=== PATIENT | male | born 1960 | race Caucasian/White ===

== ENCOUNTER → 2023-11-03 | Outpatient (CLI) | payer BC ==
--- NOTE | 2023-11-03 10:15 | US ---
EXAMINATION TYPE: US scrotum with doppler. Grayscale and color Doppler Duplex imaging performed of t rosamaria scrotum. DATE OF EXAM: 11/03/2023 COMPARISON: NONE CLINICAL INDICATION: Male, 63 years old with history of N50.812 TESTICULAR PAIN; Right testicular pa in x 3 weeks. EXAM MEASUREMENTS: TESTICLES: Right Testicle: 5.0 x 3.6 x 2.4 cm Left Testicle: 4.7 x 3.1 x 2.4 cm EPIDIDYMIS HEAD: Right Epididymis: 0.9 x 0.9 x 1.3 cm Left Epididymis: 0.9 x 1.0 x 1.1 cm Doppler performed to assess for testicular vascularity; bilateral color flow and waveforms are seen. Presence of hydroceles: Yes, right= 3.8 x 3.4 x 1.7 cm. Left= 3.2 x 0.8 x 0.9 cm. Presence of varicoceles: No IMPRESSION: 1. Moderate right hydrocele.
[2023-11-03 15:39] LABS: ALT 41 U/L (10-49); AST 24 U/L (14-35); Albumin 4.2 g/dL (3.8-4.9); Albumin/Globulin Ratio 1.83 Ratio (1.60-3.17); Alkaline Phosphatase 112 U/L (41-126); BUN/Creat Ratio 12.73 Ratio (12.00-20.00); Basophils # (A) 0.04 X 10*3/uL (0.00-0.10); Calcium 9.8 mg/dL (8.7-10.3); Carbon Dioxide 24.1 mmol/L (21.6-31.8); Chloride 104 mmol/L (96-109); Chol/HDL Ratio 5.05 Ratio; Eosinophils # (A) 0.12 X 10*3/uL (0.04-0.35); Eosinophils % (A) 2.9 %; Globulin 2.3 g/dL (1.6-3.3); Glucose 106 mg/dL (70-110); HCT 49.1 % (39.6-50.0); HGB 15.8 g/dL (13.0-17.0); LDL Cholesterol,Calculated 161.5 mg/dL (0.0-131.0); Lymphocytes # (A) 1.82 X 10*3/uL (0.90-5.00); Lymphocytes % (A) 44.5 %; MCH 29.5 pg (27.0-32.0); MCHC 32.2 g/dL (32.0-37.0); MCV 91.6 FL (80.0-97.0); Mean Platelet Volume 10.3 FL (9.5-12.2); Monocytes # (A) 0.41 X 10*3/uL (0.20-1.00); NRBC Per 100 WBC 0.02 X 10*3/uL (0.00-0.01); Neutrophils # (A) 1.69 X 10*3/uL (1.80-7.70); Neutrophils % (A) 41.4 %; Platelet Count 157 X 10*3/uL (140-440); Potassium 4.5 mmol/L (3.5-5.5); Prostate Specific Antigen 1.54 ng/mL (0.000-4.500); RBC 5.36 X 10*6/uL (4.40-5.60); RDW 13.7 % (11.5-14.5); Sodium 140 mmol/L (135-145); Total Bilirubin 0.5 mg/dL (0.3-1.2); Total Protein 6.5 g/dL (6.2-8.2); WBC 4.09 X 10*3/uL (4.50-10.00)
== END | disposition home or self-care (01) ==
LOC: RADUSWWP 08:45
PROVIDERS: ATTEND Family Medicine
DX: Z00.00 Encounter for general adult medical examination without abnormal findings (principal); Z12.5 Encounter for screening for malignant neoplasm of prostate; N50.812 Left testicular pain; E78.5 Hyperlipidemia, unspecified; N43.3 Hydrocele, unspecified
CPT/HCPCS: 76870; 80053; 80061; 84153; 85025; 93975